=== PATIENT | male | born 1990 | race Caucasian/White ===

== ENCOUNTER 2022-11-07 11:46 | Emergency (ER) | payer MEDICAID ==
[~2022-11-07] VITALS: Ht 180.3 cm; Wt 63.6 kg
[2022-11-07 12:11] VITALS: BP 116/72
[2022-11-07] MEDS ORDERED: ibuprofen tablet 400 MG TABLET PO ONE (14:10)
== END 2022-11-07 14:23 | disposition home or self-care (01) ==
LOC: ER 11:47
DX: S92.254A Nondisplaced fracture of navicular [scaphoid] of right foot, initial encounter for closed fracture (principal); X58.XXXA Exposure to other specified factors, initial encounter; Y93.89 Activity, other specified; Y92.89 Other specified places as the place of occurrence of the external cause; Y99.8 Other external cause status
CPT/HCPCS: 29515; 73630; 99284; A6446; A6449